=== PATIENT | female | born 1970 | race Caucasian/White ===

== ENCOUNTER 2019-04-18 07:53 | Day surgery (SDC) | payer OTHER ==
[2019-04-13 12:34] VITALS: BMI 24.0
[2019-04-18] MEDS ORDERED: PROPOFOL 20 ML ONE (10:14)
[2019-04-18] MEDS ORDERED: MIDAZOLAM HCL 2 MG/2 ML SINGLE DOSE VIAL ONE (10:14)
[2019-04-18] MEDS ORDERED: LIDOCAINE HCL 2% (50ML VIAL) INF ONE (11:01)
[2019-04-18 11:44] VITALS: PULSE 74; TEMP 98.3
[2019-04-18 12:09] VITALS: BP 111/72
--- NOTE | 2019-04-23 17:59 | OP ---
DATE OF OPERATION: 04/18/2019 PREOPERATIVE DIAGNOSIS: Left carpal tunnel syndrome. POSTOPERATIVE DIAGNOSIS: Left carpal tunnel syndrome. OPERATIVE PROCEDURE: Left carpal tunnel release. ANESTHESIA: Local with sedation. COMPLICATIONS: None. ESTIMATED BLOOD LOSS: Minimal. INDICATION FOR PROCEDURE: The patient is a 48-year-old female with the above findings, indicated for operative treatment. Risks, benefits, and alternatives were discussed with the patient at length. Proper informed consent was obtained. Of note, patient is approximately 4 weeks status post left shoulder rotator cuff surgery. I spoke to her operating surgeon, Dr. Remy, prior to the surgery and asked if he had any issues with me proceeding with this surgery due to arm positioning. He advised that as long as we only did passive motion of the shoulder that this was fine. Throughout the procedure, we carefully maneuvered and protected the left shoulder so as not to cause any undue stress on it. After procedure, she was placed back into her shoulder immobilizer. Prior to our procedure, as explained to patient that despite our best efforts, injury to the shoulder was always a remote possibility. PROCEDURE: After proper identification of the patient and correct operative site, patient was brought to the operating room and placed supine on the operating table, all bony prominences well padded. Sedation and local anesthesia were given. Left upper extremity was prepped and draped in the usual sterile fashion, again taking care to protect the shoulder throughout the procedure. We only abducted the shoulder about 45 degrees throughout the procedure. The left upper extremity was prepped and draped in sterile fashion. Well-padded tourniquet was placed with a sterile prep. Esmarch bandage to exsanguinate the left upper extremity. Tourniquet was inflated to 250 mmHg. Longitudinal incision was made in the proximal aspect of the palm. Incision was taken sharply through the skin with blunt and sharp dissection through subcutaneous tissues. The palmar fascia was divided longitudinally. The transcarpal ligament was divided longitudinally along with the distal 4 cm of the antebrachial fascia under direct visualization with loupe magnification. This provided complete release of the median nerve at the wrist. Wound was irrigated and repaired with 5-0 fast absorbing plain gut suture. Sterile dressing was applied. The patient was brought to the recovery room in stable condition. She tolerated the procedure well. MAXI MCHUGH M.D. [id number]
== END 2019-04-18 12:05 | disposition home or self-care (01) ==
LOC: FASU 07:53
PROVIDERS: ATTEND Orthopaedic Surgery Hand Surgery
PROC: 01N50ZZ Release Median Nerve, Open Approach (ICD-10-PCS; principal; 2019-04-18 11:00)
DX: G56.02 Carpal tunnel syndrome, left upper limb (principal)
CPT/HCPCS: 84703

== ENCOUNTER 2022-08-18 06:04 | Day surgery (SDC) | payer OTHER ==
[2022-08-16 12:47] VITALS: BMI 25.8
[2022-08-18] MEDS ORDERED: LIDOCAINE HCL 2% (20ML MULTI-DOSE VIAL) ONE (07:17)
[2022-08-18] MEDS ORDERED: LIDOCAINE HCL 2% 100 MG/5 ML DISP.SYRIN ONE (07:18)
[2022-08-18] MEDS ORDERED: MIDAZOLAM HCL 2 MG/2 ML SINGLE DOSE VIAL ONE (07:19)
[2022-08-18] MEDS ORDERED: PROPOFOL 20 ML ONE ×2 (07:19→08:23)
[2022-08-18] MEDS ORDERED: GUM MASTIC/STORAX/MSAL/ALCOHOL 1 DRP DROPSBTL MC ONE (07:56)
[2022-08-18] MEDS ORDERED: ONDANSETRON 4 MG/2 ML VIAL ONE (08:24)
[2022-08-18] MEDS ORDERED: DEXAMETHASONE SOD PHOSPHATE 4 MG/1 ML VIAL ONE (08:24)
[2022-08-18] MEDS ORDERED: KETOROLAC TROMETHAMINE 30 MG/1 ML VIAL ONE (08:24)
[2022-08-18 08:53] VITALS: RESP 18; TEMP 97.8
[2022-08-18 09:13] VITALS: BP 116/75; PULSE 68
== END 2022-08-18 09:17 | disposition home or self-care (01) ==
LOC: FASU 06:04
PROVIDERS: ATTEND Orthopaedic Surgery Hand Surgery
PROC: 0LN70ZZ Release Right Hand Tendon, Open Approach (ICD-10-PCS; principal; 2022-08-18 08:26)
DX: M65.311 Trigger thumb, right thumb (principal)